=== PATIENT | female | born 1975 | race Caucasian/White ===

== ENCOUNTER 2018-01-31 11:51 | Day surgery (SDC) | payer BC ==
[~2018-01-31 11:51] MED LIST: Bupivacaine 0.5% 30 ML SDV ONE; Gelatin Sponge,Absorbable 12-7 mm Sponge TOP ONE; Lidocaine 2% 5 ML SDV ONE
[2018-01-31] MEDS ORDERED: Propofol 200 MG/20 ML SDV ONE (11:52)
[2018-01-31] MEDS ORDERED: Lidocaine 2% 5 ML SDV ONE (11:52)
[2018-01-31] MEDS ORDERED: fentaNYL 100 MCG/2 ML SDV ONE ×2 (11:53→11:55)
[2018-01-31] MEDS ORDERED: Midazolam 1 MG/ML 2 ML SDV ONE (11:53)
[2018-01-31] MEDS ORDERED: Ondansetron 4 MG/2 ML SDV ONE (12:01)
[2018-01-31] MEDS ORDERED: Lactated Ringers 1,000 ML IV SCH ×2 (12:30→13:00)
[2018-01-31] MEDS ORDERED: Sodium Chloride 0.9% 2.5 ML Syringe FLUSH PRN (12:50)
[2018-01-31] MEDS ORDERED: Sodium Chloride 0.9% 10 ML Syringe FLUSH PRN (12:50)
[2018-01-31] MEDS ORDERED: cefOXitin 2 GM in Premix Bag 1 BAG IV ONE (12:50)
--- NOTE | 2018-01-31 13:14 | PCM.PREANE ---
Preanesthetic Assessment - Anesthesia/Transfusion/Family Hx Anesthesia History: Prior Anesthesia Without Reaction Family History of Anesthesia Reaction: No Transfusion History: No Prior Transfusion(s) Intubation History: Unknown - Review of Systems General: No Symptoms Pulmonary: No Symptoms Cardiovascular: No Symptoms Gastrointestinal: No Symptoms Neurological: No Symptoms Other: Reports: None - Physical Assessment NPO Status Date: 01/30/18 NPO Status Time: 19:00 O2 Sat by Pulse Oximetry: 100 Respiratory Rate: 15 Vital Signs: Last Vital Signs Temp 37.0 C 01/31/18 12:40 Pulse 62 01/31/18 12:40 Resp 15 01/31/18 12:40 BP 119/70 01/31/18 12:40 Pulse Ox 100 01/31/18 12:40 Height: 1.73 m Weight: 64.41 kg ASA Class: 1 Mental Status: Alert & Oriented x3 Airway Class: Mallampati = 2 Dentition: Reports: Normal Dentition (lower retainer), Sage(s) (mollars) Thyro-Mental Finger Breadths: 3 Mouth Opening Finger Breadths: 3 ROM/Head Extension: Full Lungs: Clear to Auscultation, Normal Respiratory Effort Cardiovascular: Regular Rate, Regular Rhythm - Allergies Allergies/Adverse Reactions: Allergies Allergy/AdvReac Type Severity Reaction Status Date / Time No Known Allergies Allergy Verified 01/30/18 16:20 - Blood Blood Available: No - Anesthesia Plan Pre-Op Medication Ordered: None - Acknowledgements Anesthesia Type Planned: General Anesthesia Pt an Appropriate Candidate for the Planned Anesthesia: Yes Alternatives and Risks of Anesthesia Discussed w Pt/Guardian: Yes Pt/Guardian Understands and Agrees with Anesthesia Plan: Yes PreAnesthesia Questionnaire HEENT History: Reports: Other (See Below) Other HEENT History: wears glasses/contacts, lower premanent retainer Gastrointestinal History: Reports: Other (See Below) Other Gastrointestinal History: occasional heartburn Genitourinary History: Reports: None [employer] History: Reports: - Past Surgical History Head Surgeries/Procedures: Reports: None HEENT Surgical History: Reports: Naso-Sinus Surgery Other HEENT Surgeries/Procedures: rhinoplasty, hx ear surgery (ear pinning) Female Surgical History: Reports: Hysterectomy, Other (See Below) Other Female Surgeries/Procedures: hx rectovaginal fistula repair - SUBSTANCE USE Smoking Status *Q: Never Smoker Recreational Drug Use History: No - HOME MEDS Home Medications: Home Meds Spironolactone 100 tab PO DAILY 01/30/18 [History] - CURRENT (IN HOUSE) MEDS Current Meds: Current Medications Lactated Ringer's (Ringers, Lactated) 1,000 mls @ 125 mls/hr IV ASDIRECTED [facility] Last Admin: 01/31/18 12:51 Dose: 125 mls/hr Cefoxitin Sodium 2 gm/ Premix 50 mls @ 100 mls/hr IV ONETIME ONE Stop: 01/31/18 13:19 Lactated Ringer's (Ringers, Lactated) 1,000 mls @ 125 mls/hr IV ASDIRECTED [facility] Sodium Chloride (Saline Flush) 10 ml FLUSH ASDIRECTED PRN PRN Reason: Keep Vein Open Sodium Chloride (Saline Flush) 2.5 ml FLUSH ASDIRECTED PRN PRN Reason: Keep Vein Open Discontinued Medications Bupivacaine HCl (Marcaine 0.5%) Confirm Administered Dose 30 ml .ROUTE .STK-MED ONE Stop: 01/31/18 11:23 Fentanyl (Sublimaze) Confirm Administered Dose 300 mcg .ROUTE .STK-MED ONE Stop: 01/31/18 11:54 Fentanyl (Sublimaze) Confirm Administered Dose 100 mcg .ROUTE .STK-MED ONE Stop: 01/31/18 11:56 Gelatin (Gelfoam 12-7 Mm) Confirm Administered Dose 1 each TOP .STK-MED ONE Stop: 01/31/18 11:22 Gelatin (Gelfoam Size 100) Confirm Administered Dose 1 each TOP .STK-MED ONE Stop: 01/31/18 11:23 Cefoxitin Sodium (Mefoxin In Dextrose,Iso-Osm 2 Gm/50 Ml) Confirm Administered Dose 50 mls @ as directed .ROUTE .STK-MED ONE Stop: 01/31/18 12:57 Lidocaine (Xylocaine-Mpf 2%) Confirm Administered Dose 10 ml .ROUTE .STK-MED ONE Stop: 01/31/18 11:23 Lidocaine (Xylocaine-Mpf 2%) Confirm Administered Dose 10 ml .ROUTE .STK-MED ONE Stop: 01/31/18 11:53 Midazolam HCl (Versed 1 Mg/Ml) Confirm Administered Dose 2 mg .ROUTE .STK-MED ONE Stop: 01/31/18 11:54 Ondansetron HCl (Zofran) Confirm Administered Dose 8 mg .ROUTE .STK-MED ONE Stop: 01/31/18 12:02 Propofol (Diprivan 20 Ml) Confirm Administered Dose 400 mg .ROUTE .STK-MED ONE Stop: 01/31/18 11:53
--- NOTE | 2018-01-31 14:20 | PCM.OPNOTE ---
- General Post-Op/Procedure Note Date of Surgery/Procedure: 01/31/18 Operative Procedure(s): Right anterior hemorrhoidectomy Findings: Prolapsed and strangulated right anterior hemorrhoid column Pre Op Diagnosis: Prolapsed grade 4 hemorrhoid Post-Op Diagnosis: same Anesthesia Technique: General ET Tube Primary Surgeon: Jillian Haines EBL in mLs: 5 Condition: Good
[2018-01-31] MEDS ORDERED: fentaNYL 100 MCG/2 ML SDV IVPUSH PRN (14:37)
--- NOTE | 2018-01-31 15:24 | PCM48HPAN ---
Post Anesthesia Note - EVALUATION WITHIN 48HRS OF ANESTHETIC Vital Signs in Normal Range: Yes Patient Participated in Evaluation: Yes Respiratory Function Stable: Yes Airway Patent: Yes Cardiovascular Function Stable: Yes Hydration Status Stable: Yes Pain Control Satisfactory: Yes Nausea and Vomiting Control Satisfactory: Yes Mental Status Recovered: Yes Resp Rate: 15 - COMMENTS/OBSERVATIONS Free Text/Narrative:: no anesthesia problems
--- NOTE | 2018-01-31 18:13 | OR ---
SURGEON: NESSA LEIVA MD DATE OF PROCEDURE: 01/31/2018 PREOPERATIVE DIAGNOSIS: Prolapsed internal hemorrhoids. POSTOPERATIVE DIAGNOSIS: Prolapsed internal hemorrhoids. PROCEDURE PERFORMED: Hemorrhoidectomy x1. ANESTHESIA: General endotracheal anesthesia. FLUIDS: See anesthesia record. ESTIMATED BLOOD LOSS: 5 mL. FINDINGS: Large right anterior prolapsed hemorrhoid with partial thrombosis. SPECIMEN: Hemorrhoids. COMPLICATIONS: None. INDICATIONS: The patient is a 42-year-old female, who presented with excruciatingly painful hemorrhoids to her manager package's office. She was seen in clinic by me. On physical exam, she had a large prolapsed internal hemorrhoids with thrombosis. The decision was made to perform an urgent hemorrhoidectomy. We discussed the procedure as well as expected perioperative course. We discussed the risks including bleeding, infection, or damage to surrounding structures including alteration of continence. The patient verbalized understanding and wishes to proceed. PROCEDURE IN DETAIL: The patient was brought into operating room on the operative cart. A time-out was completed verifying the patient's name, age, date of , allergies, and procedure to be performed. General endotracheal anesthesia was induced. The patient was then transferred to the operating room table and placed in a prone position. All appropriate bony surfaces were padded prior to continuing the procedure. The patient was then placed in a lachelle-knife position. The perianal area was prepped and draped in usual standard fashion. A digital rectal exam was performed. This exam revealed a single column of prolapsed internal hemorrhoids in the right anterior position. The remainder of the anal canal did not reveal any other enlarged hemorrhoidal tissue. The enlarged tissue was grasped with a hemorrhoidal clamp. Bovie electrocautery was used to elliptically excise the large hemorrhoid staying superficial to the sphincter muscle. The hemorrhoid was then passed off the specimen. Further bleeding was controlled with point electrocautery. The mucosa was then closed with a running locking stitch, which was then whip stitched back upon itself. My first stitch did not close the mucosa appropriately, so I excised this and re-stitched it shut in a similar fashion. After the second stitch, the mucosa appeared to be closed adequately. No further bleeding was noted. The area was irrigated with normal saline and hemostasis ensured. I anesthetized the perianal skin with 0.5% Marcaine plain. Fluffs and mesh panties were then placed on the patient, and the procedure terminated. The patient was then placed back in this supine position on the OR cart and extubated. She was taken to PACU in stable condition. GLORIA PEARSON /[id number]
== END 2018-01-31 16:50 | disposition home or self-care (01) ==
LOC: MW.SDS 11:51
PROVIDERS: ATTEND Surgery
DX: K64.8 Other hemorrhoids (principal); Z79.899 Other long term (current) drug therapy
CPT/HCPCS: 46255; J2250; J2405; J3010; J7120; 00902; 88304; J2704